=== PATIENT | male | born 1995 | race Caucasian/White ===

== ENCOUNTER 2016-11-11 13:21 | Emergency (ER) | payer OTHER ==
[~2016-11-11 13:21] MED LIST: ADDERALLXR PO; BACITRACIN30 GM TOP; IBUPROFEN PO
[2016-11-11] MEDS ORDERED: NO MEDICATIONS (13:25)
== END 2016-11-11 15:23 | disposition home or self-care (01) ==
LOC: SED 13:21
DX: F11.10 Opioid abuse, uncomplicated (principal); F17.200 Nicotine dependence, unspecified, uncomplicated
CPT/HCPCS: 99282